=== PATIENT | female | born 1980 | race Caucasian/White ===

== ENCOUNTER → 2018-07-11 | Outpatient (CLI) | payer MEDICAID ==
[~2018-07-11] MED LIST: DIAZ2TAB PO; FISH OIL PO; FUROSEMIDE 20 MG/2 ML ONE; HYDR-3622 PO; MULT-658 PO
== END | disposition home or self-care (01) ==
LOC: RAD 12:19
PROVIDERS: ATTEND Urology
DX: N13.30 Unspecified hydronephrosis (principal)
CPT/HCPCS: 78708; A9562; J1940